=== PATIENT | female | born 1975 | race Caucasian/White ===

== ENCOUNTER 2019-08-28 13:59 | Outpatient (CLI) | payer OTHER, SELFPAY ==
--- NOTE | ~2019-08-28 | MM_ITS ---
EXAMINATION: MM screening hugh BI w hemal HISTORY: Screening mammogram TECHNIQUE: Bilateral rotated lateral CC views. Craniocaudal and mediolateral oblique 3-D tomosynthesi s images were obtained and synthetic 2-D images were generated. CAD analysis was submitted and interp reted. COMPARISON: 08/25/2018, 08/12/2017 bilateral digital screening mammogram examinations 01/21/2017, 07/20/2016 diagnostic left digital mammogram 07/13/2016, 07/07/2015 bilateral digital screening mammogram examinations BREAST PARENCHYMAL COMPOSITION: The breasts are extremely dense, which lowers the sensitivity of mamm ography. FINDINGS: Occasional benign calcifications. There is no evidence of suspicious mass, calcification, o r architectural distortion to suggest malignancy in either breast. There has been no suspicious inter [place] change. IMPRESSION: 1. No mammographic evidence of malignancy. 2. Recommend routine screening mammography in one year. BI-RADS Category 2: Benign finding(s). Reviewed, dictated and finalized at location A. ECT MANAGEMENT DIRECTOR
== END 2019-08-28 14:00 | disposition home or self-care (01) ==
PROVIDERS: PCP Emergency Medicine; Visit Provider Obstetrics & Gynecology
DX: Z12.31 Encounter for screening mammogram for malignant neoplasm of breast (principal)
CPT/HCPCS: 77063; 77067

== ENCOUNTER 2020-12-16 08:48 | Outpatient (CLI) | payer OTHER, SELFPAY ==
--- NOTE | ~2020-12-16 | MM_ITS ---
EXAMINATION: MM screening hugh BI w hemal HISTORY: Screening TECHNIQUE: Craniocaudal and mediolateral oblique 3-D tomosynthesis images were obtained and synthetic 2-D images were generated. CAD analysis was submitted and interpreted. COMPARISON: Comparison to multiple prior studies sequentially, with oldest reviewed study dated 07/01. BREAST PARENCHYMAL COMPOSITION: The breasts are extremely dense, which lowers the sensitivity of mamm ography. FINDINGS: There are benign breast calcifications unchanged. There is no evidence of suspicious mass, calcification, or architectural distortion to suggest malignancy in either breast. There has been no suspicious interval change. IMPRESSION: 1. No mammographic evidence of malignancy. 2. Recommend routine screening mammography in one year. BI-RADS Category 2: Benign finding(s). Reviewed, dictated and finalized at location A.
== END 2020-12-16 08:49 | disposition home or self-care (01) ==
PROVIDERS: PCP Emergency Medicine; Visit Provider Obstetrics & Gynecology
DX: Z12.31 Encounter for screening mammogram for malignant neoplasm of breast (principal)
CPT/HCPCS: 77063; 77067

== ENCOUNTER 2022-01-19 09:16 | Outpatient (CLI) | payer OTHER, SELFPAY ==
--- NOTE | ~2022-01-19 | MM_ITS ---
EXAMINATION: MM screening hugh BI w hemal HISTORY: Screening mammogram TECHNIQUE: Craniocaudal and mediolateral oblique 3-D tomosynthesis images were obtained and synthetic 2-D images were generated. CAD analysis was submitted and interpreted. COMPARISON: 12/16/2020, 08/20/2019, 08/25/2018 bilateral screening mammogram examinations BREAST PARENCHYMAL COMPOSITION: The breasts are extremely dense, which lowers the sensitivity of mamm ography. FINDINGS: Occasional benign calcifications are noted bilaterally. There is no evidence of suspicious mass, calcification, or architectural distortion to suggest malignancy in either breast. There has be en no suspicious interval change. IMPRESSION: 1. No mammographic evidence of malignancy. 2. Recommend routine screening mammography in one year. BI-RADS Category 2: Benign finding(s). Reviewed, dictated and finalized at location A.
== END 2022-01-19 09:17 | disposition home or self-care (01) ==
PROVIDERS: PCP Emergency Medicine; Visit Provider Obstetrics & Gynecology
DX: Z12.31 Encounter for screening mammogram for malignant neoplasm of breast (principal)
CPT/HCPCS: 77063; 77067

== ENCOUNTER 2023-09-09 09:52 | Outpatient (CLI) | payer OTHER, SELFPAY ==
--- NOTE | ~2023-09-09 | MM_ITS ---
EXAMINATION: MM screening hugh BI w hemal HISTORY: Screening mammogram TECHNIQUE: Craniocaudal and mediolateral oblique 3-D tomosynthesis images were obtained and synthetic 2-D images were generated. CAD analysis was submitted and interpreted. COMPARISON: 01/19/2022, 12/16/2020, 08/28/2019 bilateral screening mammogram examinations BREAST PARENCHYMAL COMPOSITION: The breasts are extremely dense, which lowers the sensitivity of mamm ography. FINDINGS: Bilateral mammographic asymmetries and possible masses are suggested. Bilateral diagnostic mammogram and bilateral breast ultrasound examination are recommended. Multiple left breast calcifications. IMPRESSION: 1. Bilateral mammographic asymmetries and possible masses 2. Bilateral diagnostic mammography and breast ultrasound examination are recommended BI-RADS Category 0: Incomplete: Needs additional imaging evaluation. Reviewed, dictated and finalized at location A. NOSTIC SALES SPECIALIST IMPRESSION: 1. Bilateral mammographic asymmetries and possible masses 2. Bilateral diagnostic mammography and breast ultrasound examination are recom mended BI-RADS Category 0: Incomplete: Needs additional imaging evaluation.
== END 2023-09-09 09:53 | disposition home or self-care (01) ==
LOC: ANHIMG 09:54
PROVIDERS: PCP Emergency Medicine; Visit Provider Obstetrics & Gynecology
DX: Z12.31 Encounter for screening mammogram for malignant neoplasm of breast (principal); R92.8 Other abnormal and inconclusive findings on diagnostic imaging of breast
CPT/HCPCS: 77063; 77067

== ENCOUNTER 2023-09-27 12:31 | Outpatient (CLI) | payer OTHER, SELFPAY ==
--- NOTE | ~2023-09-27 | MMUS_ITS ---
EXAMINATION: US breast BI complete, MM diagnostic hugh BI w hemal HISTORY: Follow-up bilateral breast asymmetries and possible masses. TECHNIQUE: Additional 3-D tomosynthesis images of the breasts were performed and synthetic 2-D images were generated. CAD analysis was submitted and interpreted. High resolution bilateral complete breas t ultrasound was performed. COMPARISON: Comparison to multiple prior studies sequentially, with oldest reviewed study dated 08/12. BREAST PARENCHYMAL COMPOSITION: Dense: The breasts are extremely dense, which lowers the sensitivity of mammography. FINDINGS: MAMMOGRAPHIC FINDINGS: There is a developing cluster of calcifications in the periareolar location of the left breast which are indeterminate. No discrete mass is identified. No architectural distortion. ULTRASOUND: Complete bilateral US of all 4 quadrants of the breasts and retroareolar region was reviewed. Right breast:There are multiple cysts of the right breast. At 3:00 near the nipple is an oval partial ly cystic hypoechoic mass with internal vascularity and echogenic hilum measuring 7 mm, likely benign lymph node. At 7:00 near the nipple there is an oval hypoechoic 5 mm mass with central calcification . At 7:00 near the nipple there is an oval hypoechoic mass measuring 9 mm with heterogeneous internal echotexture, parallel orientation, no significant posterior features and no internal vascularity. Left breast: Multiple cysts of the left breast. At 4:00, 1 cm from the nipple, there is an oval paral lel oriented hypoechoic 7 mm mass with internal vascularity and no significant posterior features, li bhupendra benign. At 6:00 near the nipple there is an oval circumscribed parallel oriented hypoechoic mass measuring 8 mm without posterior features or internal vascularity. At 9:00 near the nipple there is a small lymph node. At 11:00, 3 cm from the nipple there is an oval hypoechoic mass with parallel yokasta entation, no posterior features and minimal internal vascularity. This mass measures 1.3 x 1.1 x 0.6 cm. IMPRESSION: 1. Multiple bilateral breast masses which are likely benign due to their multiplicity and sonographic appearance. Developing clustered indeterminate left breast calcifications. 2. Further evaluation with MRI of the breasts with contrast recommended. BI-RADS Category 0: Incomplete: Needs additional imaging evaluation. Reviewed, dictated and finalized at location A. MANAGER IMPRESSION: 1. Multiple bilateral breast masses which are likely benign due to their multip licity and sonographic appearance. Developing clustered indeterminate left crystal st calcifications. 2. Further evaluation with MRI of the breasts with contrast recommended. BI-RADS Category 0: Incomplete: Needs additional imaging evaluation.
== END 2023-09-27 12:32 | disposition home or self-care (01) ==
PROVIDERS: PCP Emergency Medicine; Visit Provider Obstetrics & Gynecology
DX: R92.8 Other abnormal and inconclusive findings on diagnostic imaging of breast (principal)
CPT/HCPCS: 76641; 77062; 77066; G0279

== ENCOUNTER 2023-10-17 10:32 | Outpatient (CLI) | payer OTHER, SELFPAY ==
--- NOTE | ~2023-10-17 | MR_ITS ---
MR breast BI wo/w con 10/17/2023 11:49 CDT INDICATION: Multiple bilateral breast masses seen on recent examination. MRI recommended. TECHNIQUE: MRI of the breasts perform using standard protocol pre-and post IV contrast with the follo wing sequences: Axial T2 STIR, axial T1, axial vibrant T1 with fat suppression precontrast and multip hasic postcontrast. 12 cc MultiHance administered intravenously. COMPARISON: Comparison to multiple prior studies sequentially, with oldest reviewed study dated 04/2024. FINDINGS: There are no abnormalities on the precontrast sequences. There is marked background parench ymal enhancement. There are multiple nonenhancing cysts of the right breast. No enhancing lesions fol lowing contrast administration. No areas of enhancement meeting threshold criteria on CAD analysis. No evidence of signal abnormalities in the axillary or internal mammary node distributions. LEFT BREAST: No signal abnormalities on precontrast sequences. There is minimal, mild, moderate, mar ked background parenchymal enhancement. There are multiple nonenhancing cysts of the left breast. No enhancing lesions following contrast administration. No areas of enhancement meeting threshold crite jenny on CAD analysis. No evidence of signal abnormalities in the axillary or internal mammary node d istributions.] IMPRESSION: 1: Limited study due to marked background enhancement. No suspicious enhancing discrete masses are id entified. Due to the position of the calcifications in the left breast there are not amenable to ster eotactic biopsy. Recommend excisional biopsy using radiographic guidance.. BI-RADS CATEGORY 4-SUSPICIOUS ABNORMALITY Reviewed, dictated and finalized at location A. IMPRESSION: 1: Limited study due to marked background enhancement. No suspicious enhancing discrete masses are identified. Due to the position of the calcifications in th e left breast there are not amenable to stereotactic biopsy. Recommend excision al biopsy using radiographic guidance.. BI-RADS CATEGORY 4-SUSPICIOUS ABNORMALITY
== END 2023-10-17 10:33 | disposition home or self-care (01) ==
LOC: ANHIMG 10:33
PROVIDERS: PCP Emergency Medicine; Visit Provider Obstetrics & Gynecology
DX: N63.15 Unspecified lump in the right breast, overlapping quadrants (principal); R92.8 Other abnormal and inconclusive findings on diagnostic imaging of breast
CPT/HCPCS: 77049; A9577; C8908

== ENCOUNTER 2023-11-16 00:24 | Day surgery (SDC) | payer OTHER, SELFPAY ==
[2023-11-10 11:54] VITALS: BMI 18.1
--- NOTE | 2023-11-10 11:59 | PC.NURSE ---
Report to the Outpatient Waiting Room, entrance under the green pavilion located off [facility], at time 1200 on date 11/16/23. Planned Procedure Time: 1400. Time changes happen often and if your time is changed the preop area will call you the afternoon before. - You and your visitor will be asked to self-screen and do not enter if you have any COVID symptoms. - A mask is optional within the hospital at this time. Patients may have clear liquids (water, carbonated beverages, clear teas, apple juice) until 3 hours prior to surgery with a maximum of 20 ounces. - No food from midnight until time of surgery Take the following medications with a SIP of water the morning of surgery: NONE DO NOT STOP ANY OF YOUR OTHER PRESCRIPTION MEDICATIONS PRIOR TO SURGERY ?EXCEPT THE FOLLOWING Medications to discontinue per physician: VITAMINS Date to take last dose: 11/12/23 Please no make-up, nail belizean, hairspray, perfume, deodorant, or body powder the day of surgery. No jewelry (including any body piercings) or valuables the day of surgery, leave them at home. Please take a shower or bath the night before, or the morning of, surgery with an antibacterial soap. Wear comfortable, loose fitting clothing. - Jewelry must be removed prior to entering the operating room. Rings and piercings that are not removed may be cut off. - The hospital will not accept responsibility for valuables. - Please leave all valuables, including medications, at home the day of surgery. If you are going home after surgery, a licensed courier delivery driver must drive you home. - NO public transportation without another adult if you receive anesthesia. - We recommend that an adult stay with you for 24 hours following discharge. - We also recommend that you do not drive, make important decision, drink alcoholic beverages, or take any drugs that were not prescribed by your health care provider for at least 24 hours after your discharge time. Follow any additional instructions given to you from your surgeon. If you or anyone in your household have experienced Covid symptoms in the past week, please notify your surgeon or the nurse liaison at the phone number below for possible testing. Telephone instructions given to PAUL PAYNE and asked if any additional questions and then verbalized understanding. Patient advised to call surgeon office or pre surgery nurse liaison [phone] if any additional questions.
[2023-11-16] VITALS (9 sets, daily range): BP systolic 108–133; BP diastolic 50–79; PULSE 55–64; RESP 16–18; TEMP 36.1–37.1; O2SAT 100
--- NOTE | ~2023-11-16 | MM_ITS ---
MM_FAXITRON_MG 11/16/2023 14:33 Indication: Breast calcifications. Procedure: Surgical specimen is submitted for review Comparison: Mammogram dated 09/27/2023 Findings: Surgical specimen contains multiple pleomorphic calcifications. Please refer to procedural report for details. Impression: 1: Surgical specimen contains multiple pleomorphic calcifications. Reviewed, dictated and finalized at location B. Impression: 1: Surgical specimen contains multiple pleomorphic calcifications.
[2023-11-16] MEDS: LACTATED RINGERS 1,000 ML 30 ML IV CONT (11:01)
[2023-11-16] MEDS: ACETAMINOPHEN 500 MG TABLET 1000 MG PO (11:13)
--- NOTE | 2023-11-16 11:29 | P.PNAN_ITS ---
Anes - Initial Pre Proc Eval Procedure: Operation Date: 11/16/23 12:00 Proposed Procedures p Excisional Biopsy Left Breast Lesion with Ultrasound and Faxatron Guidance - Tere Lema MD Date/Time: 11/16/23 11:29 Surgeon: Tere Lema MD Pre Op Diagnosis: microcalcification left breast Patient Data Age: 48 Gender: F Height: 1.75 m Weight: 55.9 kg Last Vital Signs Temp 98.8 F 11/16/23 10:39 Pulse 57 L 11/16/23 10:39 Resp 16 11/16/23 10:39 BP 133/57 L 11/16/23 10:39 Pulse Ox 100 11/16/23 10:39 O2 Del Method Room Air 11/16/23 10:39 Allergies Allergy/AdvReac Type Severity Reaction Status Date / Time adhesive tape Allergy Mild Rash Verified 11/16/23 10:44 Home Medications Medication Instructions Recorded Confirmed Type cholecalciferol (vitamin D3) 50 50 mcg PO DAILY 10/27/23 11/16/23 History mcg (2,000 unit) capsule Patient hx anesthesia problems: none Family hx anesthesia problems: none Results Review: All pre-operative results and documents have been reviewed as part of the pre- operative evaluation. [facility] Family History Family History Mother Depression Hypertension Sibling Breast cancer Depression Grandparent Breast cancer Diabetes mellitus Hypertension Cerebrovascular accident Thyroid disorder Grandparent Diabetes mellitus Social History Social History Smoking status: Never smoker Second hand tobacco smoke exposure: No Alcohol intake: never Alcohol use details: rarely Substance use: never Substance use type: does not use Do You Feel Safe in your Home?: Yes Lack of Transportation: No Lack of Food: Never True Current Housing: I Have Housing Concerned About Future Housing: No Difficulty Paying Gas/Electric Bills: No Difficulty Paying for Meds: No Currently Unemployed: No Education: Master's Degree or Higher Difficulty w/ Childcare or Family Care: No Living arrangements: with family Spiritual care concerns: No Anes - Eval Final PreProcedure Day of Procedure 11/16/23 11:29 Patient weight: normal Heart: regular rate and rhythm Lungs: clear to auscultation Airway: Mallampati scale Neurological: alert and oriented Last oral intake: >/= 8 hours ASA classification: I Emergent: no Anesthetic plan: proceed Anesthesia type and monitoring: general LMA and standard monitoring Results Review: All pre-operative results and documents have been reviewed as part of the pre- operative evaluation. Informed Consent: The patient's anesthetic plan and its attendant risks and benefits were discussed with the patient/family/POA. Questions were solicited and answers provided to the satisfaction of the patient/family/POA.
--- NOTE | 2023-11-16 11:43 | WPDHPUPDATE1 ---
History and Physical Update Update Date/Time: 11/16/23 11:43 History and Physical has been reviewed, including an updated exam of the patient. There are NO changes in the patient's condition. Risks, benefits, and alternatives have been discussed and questions answered. Patient agrees to proceed with procedure.
[2023-11-16] MEDS: ceFAZolin 2 GM/D5W 50 ML 2 GM/50 ML BAG IVPB (11:56)
[2023-11-16] MEDS: BUPIVACAINE/EPINEPHRINE 0.5% 50 ML VIAL 30 ML INFILTRATE (12:24)
[2023-11-16] MEDS: LIDO 1%/EPINEPHRINE 1:100,000 20 ML VIAL 30 ML INFILTRATE (12:24)
--- NOTE | 2023-11-16 12:56 | P.OP_ITS ---
Procedure Note - Detailed Date of Procedure 11/16/23 Pre-op Diagnosis retroareolar microcalcification of left breast Post-op Diagnosis Same Procedure Performed 1. Excisional biopsy of left breast retroareolar calcifications 2. Adjacent tissue transfer 2.5cm x 2.5cm Surgeon Tere Lema MD Director Corporate Sales Vielka Moon PA-C Anesthesia General Description of Procedure Patient was identified in the preoperative holding area brought to the operating room suite. She was laid supine on the operating table sequential compression devices were applied. General anesthesia was induced without difficulty. Based on her diagnostic mammogram images decision was made to start with a superior periareolar incision. I also used the ultrasound probe to visualize some of the course calcifications noted in the superior retroareolar region of the left breast to confirm our future incision and area of excision biopsy. This was dissected down to the subcutaneous tissue and may proceed to core out a small sample in the retroareolar area all the way down to the pectoralis muscle which was approximately 2.5cm in depth. Once the specimen was excised, it was oriented with surgical paint according to the leather sorter instructions. The specimen was placed in the Faxitron to ensure all the microcalcifications were contained within the specimen and this was verified. The biopsy specimen was sent to pathology as a fresh specimen. The cavity was irrigated with saline and hemostasis was assured. Since the specimen was retroareolar, decision was made for adjacent tissue transfer to close the central cavity to prevent nipple retraction and central deformity. I proceeded to perform a dual plane dissection in the upper and lateral aspect of the breast to mobilize the tissue medially into the retroareolar region. Once this was performed, several intraparenchymal 2 0 Vicryl sutures were placed to close the central cavity and support the nipple. The deep dermal layer was then closed with 3-0 Vicryl followed by 4-0 Monocryl in a subcuticular fashion for the skin. Dermabond was applied followed by a sterile dressing and a surgical bra. Patient was awoken from anesthesia taken to the recovery area in stable condition. All needles, instruments, and sponge counts were correct as reported by the operating room staff. Patient tolerated the procedure well with no immediate complications. Vielka Moon PA-C was present and assisted with patient positioning and retraction throughout the case. Estimated Blood Loss 1 Pathology Yes Complications No immediate complications Condition Stable Disposition PACU [facility] Billing Surgery - Charge Forward: Surgery Billing (CPT 15138, [id number] - [id number])
== END 2023-11-16 15:04 | disposition home or self-care (01) ==
PROVIDERS: PCP Emergency Medicine; Visit Provider Surgery
PROC: (CPT 19301; principal; 2023-11-16 12:00)
DX: D05.12 Intraductal carcinoma in situ of left breast (principal)
CPT/HCPCS: 19301; 14000; 76098; 88307; 88342; A9270; J0690; J1100; J2250; J2371; J2405; J2704; J3010; J7120

== ENCOUNTER 2024-01-03 08:05 | Outpatient (CLI) | payer OTHER, SELFPAY ==
--- NOTE | 2024-01-03 08:45 | ECG_ITS ---
[facility] [address] Test Date: 2024-01-03 Pat Name: Deja Linda Department: Room: Gender: F Cash Reconciliation Specialist: : 1975 Requested By: Jimi Acosta Order Number: [id number] Maribel MD: Jyoti Hollis M.D. Measurements Intervals [place] Rate: 64 P: 74 NC: 144 QRS: 83 QRSD: 89 T: 72 QT: 389 QTc: 404 Interpretive Statements SINUS RHYTHM POSSIBLE LEFT ATRIAL ENLARGEMENT [-0.1mV P WAVE IN V1/V2] INCOMPLETE RIGHT BUNDLE BRANCH BLOCK No previous ECG available for comparison Electronically Signed On 01-03-2024 14:19:53 CDT by Jyoti Hollis M.D.
[2024-01-03 09:04] LABS: Hematocrit 35.4 % (37.0-47.0); Hemoglobin 11.3 g/dL (12.0-15.0)
== END 2024-01-03 08:06 | disposition home or self-care (01) ==
LOC: ANHSURGERY 08:39
PROVIDERS: Anesthesiology; PCP Emergency Medicine; Visit Provider Surgery
DX: Z01.810 Encounter for preprocedural cardiovascular examination (principal); Z01.812 Encounter for preprocedural laboratory examination; D05.12 Intraductal carcinoma in situ of left breast; I45.10 Unspecified right bundle-branch block
CPT/HCPCS: 36415; 85014; 85018; 86850; 86900; 86901; 93005

== ENCOUNTER 2024-01-11 01:08 | Day surgery (SDC) | payer OTHER, SELFPAY ==
[2024-01-02 09:57] VITALS: BMI 17.7
--- NOTE | 2024-01-02 09:58 | PC.NURSE ---
Report to the Outpatient Waiting Room, entrance under the green pavilion located off [facility], at time _0700_ on date _[id number]_. Planned Procedure Time: _0900_. Time changes happen often and if your time is changed the preop area will call you the afternoon before. - You and your visitor will be asked to self-screen and do not enter if you have any COVID symptoms. - A mask is optional within the hospital at this time. Patients may have clear liquids (water, carbonated beverages, clear teas, apple juice) until 3 hours prior to surgery with a maximum of 20 ounces. - No food from midnight until time of surgery Take the following medications with a SIP of water the morning of surgery: __None DO NOT STOP ANY OF YOUR OTHER PRESCRIPTION MEDICATIONS PRIOR TO SURGERY ?EXCEPT THE FOLLOWING Medications to discontinue per physician None___ Date to take last dose Please no make-up, nail german, hairspray, perfume, deodorant, or body powder the day of surgery. No jewelry (including any body piercings) or valuables the day of surgery, leave them at home. Please take a shower or bath the night before, or the morning of, surgery with an antibacterial soap. Wear comfortable, loose fitting clothing. - Jewelry must be removed prior to entering the operating room. Rings and piercings that are not removed may be cut off. - The hospital will not accept responsibility for valuables. - Please leave all valuables, including medications, at home the day of surgery. If you are going home after surgery, a licensed tilt tray driver must drive you home. - NO public transportation without another adult if you receive anesthesia. - We recommend that an adult stay with you for 24 hours following discharge. - We also recommend that you do not drive, make important decision, drink alcoholic beverages, or take any drugs that were not prescribed by your health care provider for at least 24 hours after your discharge time. Follow any additional instructions given to you from your surgeon. If you or anyone in your household have experienced Covid symptoms in the past week, please notify your surgeon or the nurse liaison at the phone number below for possible testing. Telephone instructions given to __Deja__and asked if any additional questions and then verbalized understanding. Patient advised to call surgeon office or pre surgery nurse liaison [phone] if any additional questions.
[2024-01-11] VITALS (11 sets, daily range): BP systolic 94–126; BP diastolic 54–71; PULSE 61–89; RESP 12–18; TEMP 36.4–37.1; O2SAT 97–100; BMI 17.6
--- NOTE | ~2024-01-11 | NM_ITS ---
EXAMINATION: NM sentinel node inject only DATE: 01/11/2024 09:06 INDICATION: Left breast cancer TECHNIQUE: 1.049 mCi Tc-99m filtered sulfur colloid was injected in 4 aliquots along the superior, in ferior, medial and lateral margins of the articular. No images were obtained. IMPRESSION: 1. Successful left breast sentinel lymph node radiopharmaceutical injection. Reviewed, dictated and finalized at location A.
--- NOTE | 2024-01-11 07:19 | WPDHPUPDATE1 ---
History and Physical Update Update Date/Time: 01/11/24 07:19 - plan for left nipple sparing mastectomy, left sentinel lymph node biopsy, right nipple sparing prophylactic mastectomy with staged reconstruction with tissue expanders History and Physical has been reviewed, including an updated exam of the patient. There are NO changes in the patient's condition. Risks, benefits, and alternatives have been discussed and questions answered. Patient agrees to proceed with procedure.
--- NOTE | 2024-01-11 07:56 | WPDHPUPDATE1 ---
History and Physical Update Update Date/Time: 01/11/24 07:56 Patient seen and examined in pre-operative holding area. No interval change in medical history or symptoms. Patient remembers previous discussion of benefits and alternatives to procedure. Continues to desire to proceed with bilateral breast reconstruction with tissue expanders and acellular dermal matrix placement at time of mastectomy. I reviewed the risks including but not limited to bleeding ,infection, asymmetry, undesireable cosmetic appearance, partial/total skin/nipple loss, device failure, capsular contracture, no change or worsening of symptoms, change in sensation. I discussed the possible use of assistants and their level of participation in the case. Patient stated understanding and signed the consent form wishing to proceed
--- NOTE | 2024-01-11 07:57 | W.PM.PROC2 ---
Procedure Note - Detailed Date of Procedure 01/11/24 Pre-op Diagnosis left breast CA Post-op Diagnosis Other (acquired absence bilateral breasts) Procedure Performed b/l breast recon with TE and adm Surgeon Thelma Paez MD Thread Grinder Tool kumar brambila pa-c Anesthesia General Description of Procedure Patient was seen in the preoperative holding area where the breasts were marked and consent form was signed. Patient was taken back to the operating room and placed on the table in a supine position. Time-out was performed with Anesthesia, surgeons, and staff agreeing on patient's name, site, and surgery to be performed. SCDs were placed on the lower extremities and inflated. Antibiotics were given IV. After general anesthesia was administered the breasts were prepped and draped in the usual sterile fashion. Care was then given to Dr. Flores who proceeded with performing the left sentinel lymph node biopsy with the assistance of Kumar brambila p.a.-C. After this was completed we proceeded with performing the left nipple sparing mastectomy. I designed the inframammary fold incision and proceeded with assisting Dr. Lema in the mastectomy. After the left mastectomy was performed I proceeded with suturing in a piece of large contoured perforated AlloDerm along the inframammary fold and anterior axillary line with 2 0 Vicryl suture. I irrigated the pocket with antibiotic solution and hemostasis was obtained with Bovie cautery. I proceeded with placing a Natrelle tissue choral director reference number [id number] serial number [id number] after prepping it on the back table and rinsing it in antibiotic irrigation. This choral director was sutured into place with 2 0 Vicryl sutures using the tabs for the medial lateral and superior portion. I placed a 10 BRAULIO drain along the inframammary fold and an on Q catheter was placed along the superior aspect of the cavity. The AlloDerm was covering the tissue choral director entirely. I irrigated 1 more time with antibiotic irrigation. I closed skin with 3-0 Vicryl for dermis and 4-0 Monocryl for subcuticular closure. Next we changed our gloves and used fresh instruments and proceeded with the right nipple sparing mastectomy. Using my inframammary fold incision I proceeded with assisting Dr. Lema in the right mastectomy. After this was completed I irrigated the pocket with antibiotic irrigation. Hemostasis with Bovie cautery. I proceeded with selling and another piece large contoured perforated AlloDerm along the inframammary fold and anterior axillary line with 2-0 Vicryl suture. I proceeded with placing prepared Natrelle tissue choral director reference number [id number] serial number [id number] and sutured it into the right breast pocket using the tabs with 2-0 Vicryl suture. The position and symmetry to both breasts was reasonable. The skin flaps appeared viable as well as the nipples with good cap refill. I irrigated the pocket 1 more time with antibiotic irrigation and then closed with 3-0 Vicryl for dermis and 4-0 Monocryl for subcuticular closure after placing my 10 BRAULIO drain along the inframammary fold and on Q catheter along the superior aspect of the cavity. It was also noted the AlloDerm completely covering the right tissue choral director. The drains were hooked to bulb suction. Due to the patients small breast size to begin with no expansion was performed intraop. A dressing of Mastisol, Steri-Strips, 4x4s, Tegaderm, ABDs and a breast binder was then applied. 5 cc of 1% lidocaine with epinephrine and 0.5% Marcaine plain were used for initial bolus dose on each on Q catheter. This was hooked up to the on Q pump. The drains were hooked to bulb suction. The patient was awakened from anesthesia and transferred to the recovery room in stable condition. Complications: None Estimated blood loss: 15 cc for my portion of the procedure. Disposition: Patient tolerated the procedure well and will be staying for observation overnight.
[2024-01-11] MEDS: LIDOCAINE/PRILOCAINE CREAM 2.5-2.5% TUBE 1 EACH TOPICAL (08:09)
[2024-01-11] MEDS: LACTATED RINGERS 1,000 ML 30 ML IV CONT ×2 (08:18→13:50)
--- NOTE | 2024-01-11 08:30 | SUR.PREOP ---
0830- Patient taken via wheelchair with IV saline locked to NUC medicine. 0850- Patient returned to pre-op room 10 via wheelchair with NUC medicine staff.
[2024-01-11] MEDS: ACETAMINOPHEN 500 MG TABLET 1000 MG PO (08:52)
--- NOTE | 2024-01-11 08:56 | WPDANESEPPF ---
Anes - Initial Pre Proc Eval Procedure: Operation Date: 01/11/24 09:00 Proposed Procedures p Bilateral Nipple Sparing Mastectomy, Left [place] Lymph Node Biopsy with Lymphoseek Injection, Possible Methylene Blue, - Tere Lema MD s Bilateral Immediate Breast Reconstruction with Tissue Family Practice Nurse Practitioner Placement and Alloderm - Thelma Paez MD Date/Time: 01/11/24 08:56 Surgeon: Tere Lema MD Pre Op Diagnosis: left breast CA Patient Data Age: 48 Gender: F Height: 1.75 m Weight: 54.05 kg Last Vital Signs Temp 98.1 F 01/11/24 07:22 Pulse 61 01/11/24 07:22 Resp 14 01/11/24 07:22 BP 112/71 01/11/24 07:22 Pulse Ox 100 01/11/24 07:22 O2 Del Method Room Air 01/11/24 07:22 Allergies Allergy/AdvReac Type Severity Reaction Status Date / Time adhesive tape Allergy Mild Rash Verified 01/11/24 08:48 Home Medications Medication Instructions Recorded Confirmed Type cephalexin 500 mg capsule 500 mg PO Q8H #21 caps 01/11/24 Rx hydrocodone 5 mg-acetaminophen 325 1 tablet PO Q6H PRN pain #16 tabs 01/11/24 Rx mg tablet Patient hx anesthesia problems: none Family hx anesthesia problems: none Results Review: All pre-operative results and documents have been reviewed as part of the pre-operative evaluation. [facility] Family History Family History Mother Depression Hypertension Sibling Breast cancer Depression Grandparent Breast cancer Diabetes mellitus Hypertension Cerebrovascular accident Thyroid disorder Grandparent Diabetes mellitus Social History Social History Smoking status: Never smoker Second hand tobacco smoke exposure: No Alcohol intake: never Alcohol use details: rarely Substance use: never Substance use type: does not use Do You Feel Safe in your Home?: Yes Lack of Transportation: No Lack of Food: Never True Current Housing: I Have Housing Concerned About Future Housing: No Difficulty Paying Gas/Electric Bills: No Difficulty Paying for Meds: No Currently Unemployed: No Education: Master's Degree or Higher Difficulty w/ Childcare or Family Care: No Living arrangements: with family Spiritual care concerns: No Anes - Eval Final PreProcedure Day of Procedure 01/11/24 08:56 Patient weight: normal Heart: regular rate and rhythm Lungs: clear to auscultation Airway: Mallampati scale class II Neurological: alert and oriented Last oral intake: >/= 8 hours ASA classification: III Emergent: no Anesthetic plan: proceed Anesthesia type and monitoring: general ETT and standard monitoring Results Review: All pre-operative results and documents have been reviewed as part of the pre-operative evaluation. Informed Consent: The patient's anesthetic plan and its attendant risks and benefits were discussed with the patient/family/POA. Questions were solicited and answers provided to the satisfaction of the patient/family/POA.
[2024-01-11] MEDS: NACL 0.9% IRRIG POUR BOTTLE 1,000 ML, GENTAMICIN SULFATE INJ 160 MG, ceFAZolin 2 GM IRRIGATION (09:51)
--- NOTE | 2024-01-11 12:12 | SUR.OPER ---
right breast incision time 12:12
--- NOTE | 2024-01-11 13:15 | W.PM.PROC2 ---
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 Left nipple sparing mastectomy 2. Left sentinel lymph node biopsy with lymphoseek 3. Right nipple sparing prophylactic mastectomy Surgeon Tere Lema MD Conveyor Technician Vielka Moon PA-C Anesthesia General Description of Procedure Patient was identified in the preoperative holding area brought to the operating room suite. She was laid supine in the operating table and sequential compression devices were applied. General endotracheal anesthesia was induced without difficulty. Bilateral chest and left axillary regions were prepped and draped in a sterile fashion. Attention was turned to the left side. The gamma probe was used to find the area of highest radioactivity in the axilla and a small axillary incision was made overlying this area. Dissection was carried out of the subcutaneous tissue until the clavipectoral fascia was encountered and opened. The gamma probe was used to find a node that was high in radio activity and this was gently grasped and excised using the LigaSure device. The count for this sentinel lymph node #1 was approximately 610. A second sentinel lymph node was identified with high radioactivity and excised en bloc with 1st node, and second count was 248. Both nodes were passed off the table and sent to pathology as a fresh specimen. The 1st sentinel lymph node was inked blue for easy identification by pathology. The gamma probe was again used to scan the axilla looking for any lymph nodes with a radioactive count of at least 10% of sentinel lymph node 1, and no other nodes were identified. Palpation and inspection of the axilla, and I identified a superficial axillary node that appeared more prominent than the others, and this was also excised and sent to Pathology. The axillary incision was then irrigated hemostasis was assured. The clavipectoral fascia was closed with a running 2 0 Vicryl. The deep dermal layer was then closed with interrupted 3-0 Vicryl followed by 4-0 Monocryl for the subcuticular layer. Dermabond was applied. Attention was then turned to the left breast. An inframammary incision was made as previously marked by Plastic surgery and dissection was carried down through the subcutaneous tissue into the breast tissue. Dissection was then taking place in the thin areolar tissue between the subcutaneous in the breast tissue superiorly to the inferior border of the clavicle, medial to the lateral part of the sternal border, laterally to the latissimus dorsi, and inferior to the inframammary fold down to the muscle. The breast tissue along with the pectoralis fascia was then carefully dissected off the pectoralis muscle posteriorly. Once the entire breast was excised, it was also oriented with a short stitch superior and a long stitch lateral as well as the subareolar region with a short and long stitch. The mastectomy specimen was sent to pathology as a permanent specimen. The cavity was irrigated with saline hemostasis was assured. Attention was then turned to the right prophylactic side. An inframammary incision was again made as previously marked by Plastic surgery and dissection was carried down through the subcutaneous tissue into the breast tissue. Dissection was then taking place in the thin areolar tissue between the subcutaneous in the breast tissue superiorly to the inferior border of the clavicle, medial to the lateral part of the sternal border, laterally to the latissimus dorsi, and inferior to the inframammary fold down to the muscle. The breast tissue along with the pectoralis fascia was then carefully dissected off the pectoralis muscle posteriorly. Once the entire breast was excised, it was oriented with a short stitch superior and a long stitch lateral as well as the subareolar region was marked with a mickey
[2024-01-11] MEDS: ceFAZolin SODIUM 1 GM VIAL IV PUSH (13:34)
--- NOTE | 2024-01-11 14:36 | SUR.PHASEI ---
Simple mask removed at 3645.
[2024-01-11] MEDS: BUPivacaine 0.5% ON-Q PUMP 335 ML INTRADERM (14:40)
[2024-01-11] MEDS: fentaNYL CITRATE INJ (*CRX) 100 MCG/2 ML VIAL 25 MCG IV PUSH ×3 (14:42→15:06)
[2024-01-11] MEDS: LACTATED RINGERS 1,000 ML 100 ML IV CONT (16:00)
[2024-01-11] MEDS: HYDROcodone/acetaminophen (*CRX) 5-325 MG TABLET 1 TAB PO ×2 (16:47→22:27)
[2024-01-11] MEDS: CEPHALEXIN 500 MG CAPSULE PO ×2 (16:47→23:28)
[2024-01-11] MEDS: DOCUSATE SODIUM 100 MG CAPSULE PO (16:47)
[2024-01-11] MEDS: ACETAMINOPHEN 325 MG TABLET 650 MG PO ×2 (17:48→23:28)
[2024-01-12] MEDS: HYDROcodone/acetaminophen (*CRX) 5-325 MG TABLET 1 TAB PO (06:30)
[2024-01-12 06:34] VITALS: BP 106/65; PULSE 65; RESP 16; TEMP 37; O2SAT 99
[2024-01-12 07:45] VITALS: BP 109/62; PULSE 73; RESP 16; TEMP 37.7; O2SAT 100
[2024-01-12] MEDS: CEPHALEXIN 500 MG CAPSULE PO (07:49)
[2024-01-12] MEDS: ACETAMINOPHEN 325 MG TABLET 650 MG PO (07:49)
--- NOTE | 2024-01-12 08:59 | WPDANESPN ---
Anes - Prog Note Post-Op Date/Time: 01/12/24 08:59 Cardiovascular status: normal Respiratory status: normal Airway patency: baseline Mental status: baseline Post-Op hydration status: normal Vital Signs: Last Vital Signs Temp 37.7 C H 01/12/24 07:45 Pulse 73 01/12/24 07:45 Resp 16 01/12/24 07:45 BP 109/62 01/12/24 07:45 Pulse Ox 100 01/12/24 07:45 O2 Del Method Room Air 01/12/24 06:34 O2 Flow Rate 8 01/11/24 14:20 Pain Score (VAS): 0 I/O: Intake & Output 01/11/24 01/12/24 01/12/24 23:59 07:59 15:59 Output Total 185 55 Balance -185 -55 Post-procedural complaints: none Patient Feedback: Patient satisfied with anesthetic care.
[2024-01-12] MEDS: DOCUSATE SODIUM 100 MG CAPSULE PO (09:26)
[2024-01-12] MEDS: HYDROcodone/acetaminophen (*CRX) 10-325 MG TABLET 1 TAB PO (10:41)
--- NOTE | 2024-01-12 12:08 | PM.PNGS ---
Progress Note: A&P Assessment and Plan (1) Ductal carcinoma in situ of left breast: Code(s): D05.12 - Intraductal carcinoma in situ of left breast Status: Acute Plan 48 y/o female h/o LEFT breast DCIS and significant family history of breast cancer admitted for observation overnight s/p bilateral nipple sparing mastectomy with left axillary sentinel lymph node biopsy (Dr. Lema) and immediate prepec tissue transit mixer driver breast reconstruction (Dr. Paez), recovering well POD#1, tolerating PO diet, ambulating and voiding without issue. Reviewed impression and healing expectations, discussed signs/symptoms of concern. reviewed dressing/activity/garment instructions. Reviewed discharge medications and drain care. Pt and voiced understanding and agreement. Plan 1) dc home 2) PO cephalexin Q8hr 3) norco q6 prn pain 4) drain care 5) plastics follow up 1 week with drain log 6) breast surg follow up 2 weeks Subjective Subjective Date/Time Seen: 01/12/24 12:08 Interval history: pt seen at bedside, no concerns overnight. pain managed with PO norco, On-Q in place. denies fever/chills, bleeding/redness, SOB, chest pain, BLE pain, N/V/D, ACHARYA/dizziness. tolerating PO diet, ambulating and voiding without issue. feels ready to go home today. Exam Narrative: sitting comfortably in bed, conversational. Const: General: cooperative, healthy appearing and comfortable Orientation/consciousness: oriented to person, oriented to place and oriented to time HENMT: Head: normal to inspection Eyes: Other: anicteric Neck: Neck: no JVD Chest: Other: surgical bra and dressings c/d/i, removed. gauze and tegaderm dressings c/d/i to bilateral IMF incisions. bilateral breast tissue absent. mastectomy skin flaps and nipple wwp bilaterally, nipple cap refil <3 sec without sensation to light touch. no erythema/ecchymosis, minimal mastectomy skin flap edema. moderate tenderness, TE in place bilaterally with symmetric medial and superior border, no seroma/hematoma/fluctuance. drains to bulb suction bilaterally with moderate dark serosanguineous drainage, drains sites clean and dry. on-q catheters in place. drain output 100cc L and 100cc R overnight. left axillary incision thin flat healing well. Resp: Effort & Inspection: normal respiratory effort Extrem: General: no pedal edema Objective Data Vital Signs Vital Signs: Vital Signs - 24 hr 01/11/24 13:50 01/11/24 14:05 01/11/24 14:20 Temperature 36.4 C L Pulse Rate 89 79 88 Respiratory Rate 13 12 18 Blood Pressure 115/68 123/71 120/68 Pulse Oximetry 100 100 100 Oxygen Delivery Simple Face Mask Simple Face Mask Simple Face Mask Oxygen Flow Rate 8 8 8 01/11/24 14:35 01/11/24 14:50 01/11/24 15:05 Temperature 36.6 C 36.6 C Pulse Rate 73 67 83 Respiratory Rate 12 15 12 Blood Pressure 121/69 120/68 126/68 Pulse Oximetry 100 97 99 Oxygen Delivery Room Air Room Air Room Air Oxygen Flow Rate 01/11/24 15:15 01/11/24 15:30 01/11/24 15:30 Temperature 37.1 C 37.0 C Pulse Rate 74 81 Respiratory Rate 12 14 Blood Pressure 118/68 110/68 Pulse Oximetry 99 100 Oxygen Delivery Room Air Room Air Oxygen Flow Rate 01/11/24 23:30 01/11/24 19:30 01/11/24 19:30 Temperature 36.9 C Pulse Rate 64 72 72 Respiratory Rate 14 14 14 Blood Pressure 114/64 Pulse Oximetry 100 98 100 Oxygen Delivery Room Air Room Air Oxygen Flow Rate 01/11/24 23:30 01/12/24 06:34 01/12/24 06:34 Temperature 36.5 C 37.0 C Pulse Rate 64 65 65 Respiratory Rate 16 16 16 Blood Pressure 94/54 L 106/65 Pulse Oximetry 100 99 99 Oxygen Delivery Room Air Oxygen Flow Rate 01/12/24 07:45 01/12/24 07:50 Temperature 37.7 C H Pulse Rate 73 Respiratory Rate 16 Blood Pressure 109/62 Pulse Oximetry 100 Oxygen Delivery Room Air Oxygen Flow Rate Intake/Output Intake/Output: Intake & Output 01/09/24 01/10/24 01/11/24 01/12/24 23:59
== END 2024-01-12 12:54 | disposition home or self-care (01) ==
LOC: ANHSURGERY 08:40 → ANHOB2 15:23
PROVIDERS: Plastic Surgery; PCP Emergency Medicine; Visit Provider Surgery
PROC: (CPT 19303; principal; 2024-01-11 09:00)
PROC: (CPT 19357; 2024-01-11 09:00)
DX: D05.12 Intraductal carcinoma in situ of left breast (principal); N60.21 Fibroadenosis of right breast
CPT/HCPCS: 19303; 38525; 19357; 15777 ×2; 36415; 38792; 85014; 85018; 86850; 86900; 86901; 88305; 88307; 93005; 99199; A9270; A9520; J0665; J0690; J1100; J1170; J1580; J2250; J2405; J2704; J3010; J7030; J7120; Q4116; Q9968

== ENCOUNTER 2024-08-09 05:54 | Day surgery (SDC) | payer OTHER, SELFPAY ==
[2024-07-20 10:55] VITALS: BMI 18.5
--- NOTE | 2024-08-08 11:31 | WPDANESEPPF ---
Anes - Initial Pre Proc Eval Procedure: Operation Date: 08/09/24 07:30 Proposed Procedures p Exchange Bilateral Breast Tissue Dictaphone Transcriber to Silicone Implants - Thelma Paez MD Date/Time: 08/08/24 11:31 Surgeon: Thelma Paez MD Pre Op Diagnosis: Acquired Absence of Both Breast and Nipple Patient Data Age: 49 Gender: F Height: 1.75 m Weight: 57 kg Allergies Allergy/AdvReac Type Severity Reaction Status Date / Time adhesive tape Allergy Mild Rash Verified 08/09/24 06:38 cephalexin Allergy Rash Verified 08/09/24 06:38 Home Medications ?Medication ?Instructions ?Recorded ?Confirmed ?Type No Home Medications 01/30/24 08/09/24 History Patient hx anesthesia problems: none Family hx anesthesia problems: none Results Review: All pre-operative results and documents have been reviewed as part of the pre-operative evaluation. [facility] Past Medical History Medical History (Updated 08/09/24 @ 06:55 by Jimi Henderson DO) History of breast cancer s/p b/l mastectomy last dose of radiation 05/2024 Family History Family History Mother Depression Hypertension Sibling Breast cancer Depression Grandparent Breast cancer Diabetes mellitus Hypertension Cerebrovascular accident Thyroid disorder Grandparent Diabetes mellitus Social History Social History Smoking status: Never smoker Second hand tobacco smoke exposure: No Alcohol intake: never Alcohol use details: rarely Substance use: never Substance use type: does not use Do You Feel Safe in your Home?: Yes Lack of Transportation: No Lack of Food: Never True Current Housing: I Have Housing Concerned About Future Housing: No Difficulty Paying Gas/Electric Bills: No Difficulty Paying for Meds: No Currently Unemployed: No Education: Master's Degree or Higher Difficulty w/ Childcare or Family Care: No Living arrangements: with family Spiritual care concerns: No Anes - Eval Final PreProcedure Day of Procedure 08/08/24 11:31 Patient weight: normal Heart: regular rate and rhythm Lungs: clear to auscultation Airway: Mallampati scale class 1 Neurological: alert and oriented Last oral intake: >/= 8 hours ASA classification: III Emergent: no Anesthetic plan: proceed Anesthesia type and monitoring: general LMA and standard monitoring Results Review: All pre-operative results and documents have been reviewed as part of the pre-operative evaluation. Informed Consent: The patient's anesthetic plan and its attendant risks and benefits were discussed with the patient/family/POA. Questions were solicited and answers provided to the satisfaction of the patient/family/POA.
[2024-08-09] VITALS (8 sets, daily range): BP systolic 111–128; BP diastolic 64–84; PULSE 57–90; RESP 12–18; TEMP 36.6–36.8; O2SAT 99–100
[2024-08-09] MEDS: LACTATED RINGERS 1,000 ML 30 ML IV CONT (06:34)
--- NOTE | 2024-08-09 06:47 | WPDHPUPDATE1 ---
History and Physical Update Update Date/Time: 08/09/24 06:47 Patient seen and examined in pre-operative holding area. No interval change in medical history or symptoms. Patient remembers previous discussion of benefits and alternatives to procedure. Continues to desire to proceed with bilateral tissue neurosurgery spine physician exchange for silicone implant and capsulotomy. I reviewed the risks including but not limited to bleeding ,infection, asymmetry, undesireable cosmetic appearance, partial/total skin/nipple loss, no change or worsening of symptoms, change in sensation, device failure, capsular contracture. I discussed the possible use of assistants and their level of participation in the case. Patient stated understanding and signed the consent form wishing to proceed
--- NOTE | 2024-08-09 06:49 | W.PM.PROC2 ---
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 Patient was taken back to the operating room and placed on the table in the supine position. Time-out was performed with Anesthesia, surgeon, and staff agreeing on patient's name, site, and surgery to be performed. SCDs were placed on the lower extremities and inflated. Antibiotics were given IV. After general anesthesia was administered the breasts were prepped and draped in usual sterile fashion. I took my attention to the right breast were I proceeded with making an elliptical incision around her previous mastectomy scar through skin and dermis with a 15 blade scalpel. Bovie cautery was used to dissect through subcutaneous tissue down to the breast capsule. I elevated superiorly along the capsule. I entered the capsule with Bovie cautery. I removed the intact right breast tissue rhinestone setter. The capsule was examined with lighted retractors and I proceeded with extensive capsulotomy of the right breast with radial and vertical scoring along medial and superior aspect. Provisional sizers were placed and decision was made to go with a Natrelle 255 cc moderate projection implant. The Sizer was removed. The pocket irrigated with antibiotic irrigation and hemostasis with Bovie cautery. A portion of inferior capsule was also resected noting it was thicker and in anticipation of capsulorrhaphy to elevate the right breast a capsule to make it more symmetric with the left breast was done with Bovie cautery. This was done prior to the hemostasis and antibiotic irrigation. The skin was then prepped with Betadine and new towels were placed around the incision. Gloves were changed and instruments rinsed in antibiotic irrigation. I proceeded with taking a Natrelle SCM -255 implant serial [id number] directly from the package after rinsing in antibiotic irrigation and placed it in its appropriate orientation in the right breast pocket. The capsule was closed with 3-0 Vicryl suture in the new superior chest wall attachment. dermis was closed with 3-0 Vicryl and 4-0 Monocryl was used for subcuticular closure. Next I took my attention to the left breast where I proceeded with making an elliptical incision around her previous mastectomy scar through skin and dermis with a 15 blade scalpel. Bovie cautery was used to dissect through subcutaneous tissue down the breast capsule and extending this along the capsule superiorly. The capsule was incised with Bovie cautery. I removed the intact left breast tissue rhinestone setter. I proceeded with extensive capsule chris me with radial and vertical scoring and a superior medial and lateral aspects of the left breast pocket Bovie cautery. The Sizer was placed noting improved transition from [place] chest wall to implant and release of capsular contractures as well as improved symmetry to the right breast. The temporary Sizer was removed. Hemostasis was obtained with Bovie cautery. I irrigated the pocket with antibiotic irrigation. I proceeded with prepping the skin with Betadine placing a fresh towels around the incision changing gloves and rinsing and instruments and antibiotic irrigation once again. I proceeded with taking a Natrelle SCM -255 implant serial number [id number] directly from the package after rinsing it in antibiotic irrigation and placed in its appropriate orientation the left breast pocket. Capsule and dermis was closed with 3-0 Vicryl suture 4-0 Monocryl for subcuticular closure. The skin flaps were viable the nipples appeared viable and there appeared to be good symmetry between the breasts. 10 cc of 1% lidocaine with epinephrine and 0.5% Marcaine plain were injected around the incisions in lateral chest for each breast. A dressing of Mastisol, Steri-Strips, 4 x 4, Tegaderm, ABD and a breast binder was then applied. The patient was awakened from anesthesia and transferred to the recovery room in stable condition. Complications: None estimated blood loss: 6 cc disposition: Patient tolerated the procedure well and will be going home later today Kumar Brambila PA-C was essential for positioning, retracrtion, closure and dressing placement [facility] [place] Billing Surgery - Charge Forward: Surgery Billing ([id number] same for kumar adding modifier )
[2024-08-09] MEDS: CLINDAMYCIN 900 MG/NS 50 ML 900 MG/50 ML PIGGYBACK 50 MG IVPB (07:22)
[2024-08-09] MEDS: NACL 0.9% IRRIG POUR BOTTLE 900 ML, GENTAMICIN SULFATE INJ 160 MG, CLINDAMYCIN PHOS INJ... IRRIGATION (08:15)
[2024-08-09] MEDS: LIDO 1%/EPINEPHRINE 1:100,000 10 ML VIAL 30 ML INFILTRATE (08:25)
[2024-08-09] MEDS: BUPivacaine HCL 0.5% PF 30 ML VIAL INFILTRATE (08:25)
[2024-08-09] MEDS: fentaNYL CITRATE INJ (*CRX) 100 MCG/2 ML VIAL 25 MCG IV PUSH ×3 (08:59→09:19)
[2024-08-09] MEDS: oxyCODONE HCL (*CRX) 5 MG TAB IR PO (09:49)
--- NOTE | 2024-08-09 10:13 | WPDANESPN ---
Anes - Prog Note Post-Op Date/Time: 08/09/24 10:13 Cardiovascular status: normal Respiratory status: normal Airway patency: baseline Mental status: baseline Post-Op hydration status: normal Vital Signs: Last Vital Signs Temp 36.6 C 08/09/24 08:34 Pulse 57 L 08/09/24 09:51 Resp 15 08/09/24 09:51 BP 123/77 08/09/24 09:51 Pulse Ox 100 08/09/24 09:51 O2 Del Method Room Air 08/09/24 09:51 O2 Flow Rate 2 08/09/24 09:04 Pain Score (VAS): 2 I/O: Intake & Output 08/08/24 08/09/24 08/09/24 23:59 07:59 15:59 Intake Total 1000 Balance 1000 Post-procedural complaints: none Patient Feedback: Patient satisfied with anesthetic care. Other Findings: Patient vital signs back to baseline. Patient denies nausea and vomiting. Patient's pain under control. Patient OK for discharge.
== END 2024-08-09 10:24 ==
PROVIDERS: PCP Nurse Practitioner; Visit Provider Plastic Surgery
PROC: (CPT 19342; principal; 2024-08-09 07:30)
DX: Z45.811 Encounter for adjustment or removal of right breast implant (principal); Z45.812 Encounter for adjustment or removal of left breast implant
CPT/HCPCS: 19342

== ENCOUNTER 2024-08-09 07:00 | Outpatient (NON) | payer OTHER, SELFPAY | END 2024-08-09 07:01 | disposition home or self-care (01) | LOC: ANHLAB 14:28 | PROVIDERS: PCP Nurse Practitioner; Visit Provider Plastic Surgery | DX: Z90.13 Acquired absence of bilateral breasts and nipples (principal) | CPT/HCPCS: 88300; 88304; 88305 ==

== ENCOUNTER 2024-08-31 11:23 | Outpatient (CLI) | payer OTHER, SELFPAY ==
--- OUTSIDE RECORDS SUMMARY | 2024-08-31 11:26 | XMS_ITS | Clinical Summary ---
[facility] Address [address] [address] Care Team Providers Care Concrete Products Machine Operator Name Role Phone Christiano Carey MD Primary Care Provider [phone] Allergies Active Allergy Reactions Criticality Noted Date Comments Adhesive Itching Low 11/29/2023 Cephalexin Rash,Swelling Low 02/10/2024 Face swelling Medications Mometasone (ELOCON) 0.1 % Solution Apply to affected area 2 times daily. 120 mL 3 03/08/2024 Active tamoxifen (NOLVADEX) 20 mg tablet Take 1 Tablet (20 mg) by mouth daily. 90 Tablet 4 05/18/2024 Active Active Problems No known active problems Encounters Date Type Department Care Team Description 08/23/2024 External Device Data STL ABSTRACTION Provider, Abstract from Last 3 Months Family History Medical History Relation Name Comments No Known Problems Brother No Known Problems Father Breast Cancer Maternal Grandmother Hyperlipidemia Mother No Known Problems Sister 1 No Known Problems Sister 2 Breast Cancer Sister 3 Breast Cancer Sister 4 No Known Problems Sister 5 Relation Name Status Comments Brother Alive Father Alive Maternal Grandmother Alive Mother Alive Sister 1 Alive Sister 2 Alive Sister 3 Alive Sister 4 Alive Sister 5 Alive Social History Tobacco Use Types Packs/Day Years Used Date Smoking Tobacco: Never Tobacco Cessation:Counseling Given: Not Answered Alcohol Use Standard Drinks/Week Comments Yes 0 (1 standard drink = 0.6 oz pur e alcohol) socially Comments Unknown Sex and Gender Information Value Date Recorded Sex Assigned at Not on file Legal Sex Female 10:34 AM CDT Gender Identity Not on file Sexual Orientation Not on file Last Filed Vital Signs Vital Sign Reading Time Taken Comments Blood Pressure 103/72 05/18/2024 9:39 AM CDT Pulse 78 05/18/2024 9:39 AM CDT Temperature 36.9 ??C (98.4 ??F) 05/18/2024 9:39 AM CD T Respiratory Rate 15 05/18/2024 9:39 AM CDT Oxygen Saturation 98% 05/18/2024 9:39 AM CDT Inhaled Oxygen Concentration - - Weight 57.6 kg (127 lb) 05/18/2024 9:39 AM CDT Height 175.3 cm (5' 9 ) 11/29/2023 1:35 PM CDT Body Mass Index 18.75 11/29/2023 1:35 PM CDT Plan of Treatment Upcoming Encounters Date Type Department Care Team (Late st Contact Info) Description 08/31/2024 12:00 PM COMBATANT SWIMMER Office Visit [facility] Oncology and Hematology [facility] [address] [facility] [address] [place] [address] Patrick Thomas MD [address] [facility] [employer] [address] [place] [address] Health Maintenance Due Date Last Done Comments DTAP/TDAP/TD VACCINES (1 - Tdap) 1994 HEPATITIS B VACCINES (1 of 3 - 19+ 3-dose series) 01/30 CERVICAL CANCER SCREENING 2005 BREAST CANCER SCREENING 2015 COLORECTAL SCREENING 02/22/2020 Colorectal Cancer Screening 02/22/2020 FIT-DNA Q 3 years 02/22/2020 FIT/FOBT Q 1 year 02/22/2020 Flex Sig/CT Colonography Q 5 years 02/22/2020 Preventative Visit- Commercial 08/01/2024 INFLUENZA VACCINE Completed 05/07/2024 Insurance [employer] CHOICE POS Care Teams Concrete Products Machine Operator Relationship Specialty Start Date End Date Christiano Carey MD [facility] [place] [id number] PCP - General Family Practice 11/29/23
--- OUTSIDE RECORDS SUMMARY | 2024-08-31 11:26 | XMS_ITS | Clinical Summary ---
Author Organization [facility] Address [address] [place] [address]. [place], [place] [address] [place] [address] Care Team Providers Care Ship Washer Name Role Phone Angie Sandhu NP Primary Care Provider [phone] Allergies Active Allergy Reactions Criticality Noted Date Comments Cephalexin Other (see comment),Rash,Swelling Low 01/13/2024 Face swelling Tape Itching Low 11/29/2023 Medications tamoxifen (NOLVADEX) 20 MG tablet Take 1 tablet by mouth daily. 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 History of bilateral mastectomy 06/01/2024 Anemia, unspecified type 06/01/2024 Encounters Date Type Department Care Team Description 06/01/2024 3:20 PM CDT Office Visit [facility] [address] [place] [address] Angie Sandhu, DENA New Patient 06/01/2024 Travel from Last 3 Months Family History Medical History Relation Comments Hyperlipidemia Father Hypertension Mother Breast Cancer Sister breast cancer Sister Relation Status Comments Father Mother Sister Social History Tobacco Use Types Packs/Day Years Used Date Smoking Tobacco: Never Passive Smoke Exposure: Never Smokeless Tobacco: Never Alcohol Use Standard Drinks/Week Comments Not Currently 0 (1 standard drink = 0.6 oz pur e alcohol) Comments No Sex and Gender Information Value Date Recorded Sex Assigned at Not on file Legal Sex Female 3:59 PM CDT Gender Identity Not on file Sexual Orientation Not on file Last Filed Vital Signs Vital Sign Reading Time Taken Comments Blood Pressure 138/85 06/01/2024 3:36 PM CDT Pulse 71 06/01/2024 3:36 PM CDT Temperature 36.4 ??C (97.6 ??F) 06/01/2024 3:36 PM CD T Respiratory Rate 18 06/01/2024 3:36 PM CDT Oxygen Saturation 100% 06/01/2024 3:36 PM CDT Inhaled Oxygen Concentration - - Weight 57.9 kg (127 lb 9.6 oz) 06/01/2024 3:36 P M CDT Height 175.3 cm (5' 9 ) 06/01/2024 3:36 PM CDT Body Mass Index 18.84 06/01/2024 3:36 PM CDT Plan of Treatment Upcoming Encounters Date Type Department Care Team (Late st Contact Info) Description 06/03/2025 8:00 AM VETERANS' COUNSELOR Office Visit [facility] - [place] [address] [place] [address] Angie Sandhu, RECOVERY ENGINEER [address] [place] [address] Health Maintenance Due Date Last Done Comments Cervical Cancer Screening Pap Smear (Age 30 to 64) Every 3 Years 1975 Colorectal Cancer Screening Colonoscopy (10 Years) 1975 PHQ-2 (Physician [place]) 1987 Hepatitis C 1993 Hepatitis B Vaccines (1 of 3 - 19+ 3-dose series) 1994 Cervical Cancer Screening Pap with HPV Testing (Age 30 to 64) Every 5 Years 2005 Cervical Cancer Screening with HPV 2005 Mammogram Screening 2015 PHQ-2 (Physician [place]) 08/01/2024 Annual Physical 06/01/2025 06/01/2024 DTaP, Tdap and Td Vaccines (2 - Td or Tdap) 08/27/2032 08/27/2022 COVID-19 Vaccine Completed 05/08/2024, , 06/22/2022, Additional history exists Influenza Adult Completed 05/08/2024, 05/02, 05/11/2022, Additional history exists Meningococcal B Vaccine Aged Out No l onger eligible based on patient's age to complete this topic Meningococcal Vaccine Aged Out No zuleyma jennifer eligible based on patient's age to complete this topic Pneumococcal Vaccine: Pediatrics (0 to 5 Years) and At-Risk Patients (6 to 64 Years) Aged Out No longer eligible based on patient's age to complete this topic RSV Immunizations Under 20 Months Aged Out No longer eligible based on patient's age to complete this topic Insurance [facility] Care Teams Ship Washer Relationship Specialty Start Date End Date Angie Sandhu RECOVERY ENGINEER [address] [place] [address] PCP - General NURSE PRACTITIONER 06/01/24
[2024-08-31 11:41] LABS: Basophils Percent Auto 0.6 % (0.2-1.2); Eosinophils Percent Auto 0.7 % (0-4.4); Hematocrit 36.7 % (37.0-47.0); Hemoglobin 12.1 g/dL (12.0-15.0); Immature Granulocyte Absolute 0.01 K/mm3 (0.00-0.031); Immature Granulocyte Percent A 0.2 % (0-0.5); Lymphocytes Absolute Auto 0.99 K/mm3 (0.9-3.2); Lymphocytes Percent Auto 18.3 % (18.3-44.2); Mean Corpuscular Hemoglobin 30.6 pg (26-34); Mean Corpuscular Volume 92.7 fl (80-100); Mean Platelet Volume 10.3 fl (7.4-10.4); Monocytes Absolute Auto 0.5 K/mm3 (0.1-0.6); Monocytes Percent Auto 9.6 % (2.6-8.5); Neutrophils Absolute Auto 3.8 K/mm3 (1.3-6.7); Neutrophils Percent Auto 70.6 % (45.5-73.1); Platelet Count Result 257 k/mm3 (150-375); Red Blood Count 3.96 M/mm3 (4.2-5.4); Red Cell Distribution Width 13.2 % (11.5-14.5); White Blood Count 5.4 K/mm3 (4.5-10.0)
[2024-08-31 11:44] LABS: Blood Urea Nitrogen 14 mg/dL (8-26); Carbon Dioxide 25 mmol/L (22-30); Chloride 104 mmol/L (98-109); Estimated Glomerular Filt Rate > 60; Glucose 100 mg/dL (70-105); Ionized Calcium (POC) 1.23 mmol/L (1.11-1.31); Potassium 4.2 mmol/L (3.5-4.9); Sodium 139 mmol/L (138-146)
[2024-08-31 12:40] LABS: Alanine Aminotransferase 16 U/L (6-35); Albumin Level 4.4 g/dL (3.5-5.1); Alkaline Phosphatase 59 U/L (38-126); Anion Gap 8 mmol/L (4-12); Aspartate Amino Transferase 25 U/L (14-36); Bilirubin,Total 0.6 mg/dL (0.2-1.3); Blood Urea Nitrogen 15 mg/dL (7-17); Calcium 9.6 mg/dL (8.4-10.2); Carbon Dioxide 24 mmol/L (22-30); Chloride 104 mmol/L (98-107); Estimated Glomerular Filt Rate > 60; Glucose 100 mg/dL (65-110); Potassium 4.3 mmol/L (3.4-5.0); Sodium 136 mmol/L (137-145)
== END 2024-08-31 11:24 | disposition home or self-care (01) ==
LOC: ANHLAB 11:23
PROVIDERS: Visit Provider Internal Medicine Hematology & Oncology
DX: D05.12 Intraductal carcinoma in situ of left breast (principal)
CPT/HCPCS: 36415; 80047; 80053; 85025

== ENCOUNTER 2024-11-05 08:00 | Outpatient (RCR) | payer OTHER, SELFPAY ==
[2024-10-01 08:05] VITALS: BP_SYST 140
--- NOTE | 2024-10-01 09:02 | OPREHPOC ---
Outpatient Therapy Plan of Care This is a Multidisciplinary Plan of Care that may contain components documented by all disciplines (PT, OT, and ST.) PT Problem 1 PT Problem #1 Knowledge Deficit PT Goal 1 Goal / Goal Update *indep with HEP Target Visit 6 PT Problem 2 PT Problem #2 Impaired Flexibility PT Goal 1 Goal / Goal Update increase flexibility of L shoulder to improve ability to reach overhead and self & home activities: in standing, active ROM: 1* flexion 140' 2* abduction 140' 3* ER in supine, with hands behind head, same distance to bed as R elbow Target Visit 6 PT Problem 3 PT Problem #3 Pain PT Goal 1 Goal / Goal Update * with stretching of L shoulder, pain 2/10 at worst Target Visit 6
--- NOTE | 2024-10-01 09:02 | PTOPEVAL1 ---
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 Her treatment has been completed in August 2024. She is R hand dominant, and active lifestyle. She has been doing some stretching to her L shoulder, but reports it is still tight and some tenderness. She does not have any swelling over her breast, trunk or shoulder and arm. With the evaluation: decreased L shoulder ROM with tightness over anterior shoulder and tenderness with spasms. L elbow, wrist and hand ranges are WNL and with good strength. Skilled PT services are indicated for modalities to decrease pain and tightness, therapeutic exercises to increase flexibility of L shoulder, with education for HEP. Plan of Care Interventions Hot Pack/Cold Pack,Manual Therapy,Neuro Re- education,Patient/Caregiver Education,Therapeutic Activities,Therapeutic Exercise,Other Other Interventions taping PT Services Indicated Yes Treatment Frequency and 1x/wk for 6 visits Duration These treatments will address the objective and functional deficits as defined above. The patient will be advanced safely and appropriately in order for the patient to progress towards his/her prior level of function. Additional exercises will be introduced and as well as a comprehensive home exercise program upon discharge, if needed, ?to ensure carryover of functional gains achieved in the clinic. This treatment plan has been reviewed and agreement upon by the patient.
--- NOTE | 2024-11-05 08:56 | PTOPDC ---
Assessment and note entered by Celena Robles, PT Assessment Status Discharge ICD-10 Condition Codes (PT) Pain in left shoulder M25.512 Other ICD-10 Condition Codes ( Z90.13 bilateral mastectomy PT) Onset May 2024 Subjective Information shoulder is not as tight, is looser; not back to normal, but better; doing all the exercises at home; is doing everything, but aware that shoulder is tight and stiff; Reported Pain Level Pain Score Self Report Additional Pain Score Comments L shoulder tightness; pain range of the past week 0-5/10- pain if push it too far. does not stop her from doing anything with her L arm. Assessment PT Clinical Summary Deja has received 6 PT sessions. She continues to report tight and ache in L shoulder with stretching to 5/10 and at rest, no pain. Strength has improve-- she has returned to performing all of her usual home and work tasks. Education completed for monitor for any s/s of lymphedema, HEP and progression of activity. L shoulder ROM: active/passive: flexion 140'/ 160' abduction 120'/ 140'; IR reach behind back, fingers to scapula and ER- reach to back of head. With supine ER stretch, with hands behind head, has tightness with elbow not flat to the bed, like her R side. The goals were partially achieved. Discharge PT services. She is to continue with her HEP with progression of activity as able. Plan of Care PT Services Indicated No
== END 2024-11-05 12:57 | disposition home or self-care (01) ==
LOC: ANHPT 08:00
PROVIDERS: PCP Physician Assistant Surgical; Visit Provider Physician Assistant Surgical
DX: Z90.13 Acquired absence of bilateral breasts and nipples (principal)
CPT/HCPCS: 97110; 97140; 97161; 97530

== ENCOUNTER 2025-01-11 08:15 | Outpatient (CLI) | payer OTHER, SELFPAY ==
--- OUTSIDE RECORDS SUMMARY | 2025-01-11 08:18 | XMS_ITS | Clinical Summary ---
Author Organization [facility] Address [address] [place] [address] Care Team Providers Care Clay Artist Name Role Phone Christiano Carey MD Primary Care Provider [phone] Allergies Active Allergy Reactions Criticality Noted Date [...] Encounters Date Type Department Care Team Description 01/01/2025 External Device Data STL ABSTRACTION Provider, Abstract 12/20/2024 External Device Data STL ABSTRACTION Provider, Abstract 12/19/2024 External Device Data STL ABSTRACTION Provider, Abstract 12/18/2024 External Device Data STL ABSTRACTION Provider, Abstract 11/13/2024 External Device Data STL ABSTRACTION Provider, Abstract 10/17/2024 External Device Data STL ABSTRACTION Provider, Abstract [...] Sign Reading Time Taken Comments Blood Pressure 112/67 08/31/2024 12:00 PM NEUROPSYCHIATRIC AIDE Pulse 61 08/31/2024 12:00 PM NEUROPSYCHIATRIC AIDE Temperature 36.1 C (97 F) 08/31/2024 12:00 PM NEUROPSYCHIATRIC AIDE Respiratory Rate 17 08/31/2024 12:00 PM NEUROPSYCHIATRIC AIDE Oxygen Saturation 98% 08/31/2024 12:00 PM NEUROPSYCHIATRIC AIDE Inhaled Oxygen Concentration - - Weight 56.3 kg (124 lb 3.2 oz) 08/31/2024 12:00 PM NEUROPSYCHIATRIC AIDE Height 175.3 cm (5' 9) 11/29/2023 1:35 PM CDT Body Mass Index 18.34 11/29/2023 1:35 PM CDT Plan of Treatment Upcoming Encounters Date Type Department Care Team (Late st Contact Info) Description 01/11/2025 8:45 AM CDT Office Visit [facility] Oncology and Hematology - [place] [address] [facility] [address] [place] [address] Patrick Thomas MD [address] [place] [address] Health Maintenance Due Date Last Done Comments DTAP/TDAP/TD VACCINES (1 - Tdap) 1994 HEPATITIS B VACCINES (1 of 3 - 19+ 3-dose series) 01/30 HPV/Cotest (21-29) 02/22/1996 CERVICAL CANCER SCREENING 2005 HPV/Cotest (30-65) 2005 PAP SMEAR 2005 COLORECTAL SCREENING 02/22/2020 Colorectal Cancer Screening 02/22/2020 FIT-DNA Q 3 years 02/22/2020 FIT/FOBT Q 1 year 02/22/2020 Flex Sig/CT Colonography Q 5 years 02/22/2020 INFLUENZA VACCINE Completed 05/07/2024 Insurance [employer] MANAGED CHOICE Care Teams Clay Artist Relationship Specialty Start Date End Date Christiano Carey MD [address] [place] [address] [place] [address] PCP - General Family Practice 11/29/23
[2025-01-11 08:28] LABS: Basophils Absolute Auto 0.1 K/mm3 (0.0-0.1); Basophils Percent Auto 1.8 % (0.2-1.2); Eosinophils Absolute Auto 0.1 K/mm3 (0-0.3); Eosinophils Percent Auto 2.1 % (0-4.4); Hematocrit 38.7 % (37.0-47.0); Hemoglobin 12.8 g/dL (12.0-15.0); Immature Granulocyte Absolute 0.01 K/mm3 (0.00-0.031); Immature Granulocyte Percent A 0.3 % (0-0.5); Lymphocytes Absolute Auto 0.85 K/mm3 (0.9-3.2); Lymphocytes Percent Auto 25.4 % (18.3-44.2); Mean Corpuscular HGB Conc 33.1 g/dl (32-36); Mean Corpuscular Volume 90.8 fl (80-100); Mean Platelet Volume 9.9 fl (7.4-10.4); Monocytes Absolute Auto 0.4 K/mm3 (0.1-0.6); Neutrophils Percent Auto 59.4 % (45.5-73.1); Platelet Count Result 279 k/mm3 (150-375); Red Blood Count 4.26 M/mm3 (4.2-5.4); Red Cell Distribution Width 12.7 % (11.5-14.5); White Blood Count 3.4 K/mm3 (4.5-10.0)
[2025-01-11 08:32] LABS: Blood Urea Nitrogen 17 mg/dL (8-26); Carbon Dioxide 25 mmol/L (22-30); Chloride 103 mmol/L (98-109); Estimated Glomerular Filt Rate 59; Glucose 70 mg/dL (70-105); Potassium 4.1 mmol/L (3.5-4.9); Sodium 140 mmol/L (138-146)
[2025-01-11 08:58] LABS: Alanine Aminotransferase 20 U/L (6-35); Albumin Level 4.5 g/dL (3.5-5.1); Alkaline Phosphatase 56 U/L (38-126); Anion Gap 8 mmol/L (4-12); Aspartate Amino Transferase 32 U/L (14-36); Bilirubin,Total 0.5 mg/dL (0.2-1.3); Blood Urea Nitrogen 17 mg/dL (7-17); Calcium 9.6 mg/dL (8.4-10.2); Carbon Dioxide 25 mmol/L (22-30); Chloride 106 mmol/L (98-107); Estimated Glomerular Filt Rate > 60; Glucose 72 mg/dL (65-110); Potassium 4.2 mmol/L (3.4-5.0); Sodium 139 mmol/L (137-145); Total Protein 7.8 g/dL (6.3-8.2)
== END 2025-01-11 08:16 | disposition home or self-care (01) ==
PROVIDERS: Visit Provider Internal Medicine Hematology & Oncology
DX: D05.12 Intraductal carcinoma in situ of left breast (principal)
CPT/HCPCS: 36415; 80047; 80053; 85025

== ENCOUNTER 2025-07-19 09:31 | Outpatient (CLI) | payer BC, SELFPAY ==
[2025-07-19 09:45] LABS: Hematocrit 35.7 % (37.0-47.0); Hemoglobin 12.0 g/dL (12.0-15.0); Immature Granulocyte Percent A 0.4 % (0-0.5); Lymphocytes Absolute Auto 0.83 K/mm3 (0.9-3.2); Mean Corpuscular HGB Conc 33.6 g/dl (32-36); Mean Corpuscular Hemoglobin 30.5 pg (26-34); Mean Corpuscular Volume 90.8 fl (80-100); Nucleated Red Blood Cells Absolute Auto 0.000 K/mm3 (0.0-0.012); Nucleated Red Blood Cells Perc 0.0 % (0.0-0.2); Platelet Count Result 274 k/mm3 (150-375); Red Blood Count 3.93 M/mm3 (4.2-5.4); White Blood Count 5.7 K/mm3 (4.5-10.0)
--- OUTSIDE RECORDS SUMMARY | 2025-07-19 09:49 | XMS_ITS | Clinical Summary ---
Author Organization [facility] waite [facility] Address [address] [place] [address] Care Team Providers Care Hi Lift Operator Name Role Phone Unavailable Primary Care Provider Unavailabl e Allergies Active Allergy Reactions Criticality Noted Date [...] Encounters Date Type Department Care Team Description 07/16/2025 External Device Data STL ABSTRACTION Provider, Abstract 05/21/2025 External Device Data STL ABSTRACTION Provider, Abstract [...] Sign Reading Time Taken Comments Blood Pressure 99/61 01/11/2025 8:45 AM CDT Pulse 65 01/11/2025 8:45 AM CDT Temperature 36.3 C (97.4 F) 01/11/2025 8:45 AM CDT Respiratory Rate 14 01/11/2025 8:45 AM CDT Oxygen Saturation 98% 01/11/2025 8:45 AM CDT Inhaled Oxygen Concentration - - Weight 55.5 kg (122 lb 6.4 oz) 01/11/2025 8:45 A M CDT Height 175.3 cm (5' 9) 11/29/2023 1:35 PM CDT Body Mass Index 18.08 11/29/2023 1:35 PM CDT Plan of Treatment Upcoming Encounters Date Type Department Care Team (Late st Contact Info) Description 07/19/2025 10:00 AM IMPROVEMENT ENGINEER Office Visit [facility] Oncology and Hematology [facility] [address] [facility] [address] [place] [address] Patrick Thomas MD [address] [place] [address] Arrived Health Maintenance Due Date Last Done Comments DTAP/TDAP/TD VACCINES (1 - Tdap) 1994 08/27/19 23 HEPATITIS B VACCINES (1 of 3 - 19+ 3-dose series) 1994 HPV/Cotest (21-29) 02/22/1996 CERVICAL CANCER SCREENING 2005 HPV/Cotest (30-65) 2005 PAP SMEAR 2005 COLORECTAL SCREENING 02/22/2020 Colorectal Cancer Screening 02/22/2020 FIT-DNA Q 3 years 02/22/2020 FIT/FOBT Q 1 year 02/22/2020 Flex Sig/CT Colonography Q 5 years 02/22/2020 Preventative Visit- Commercial 08/01/2024 06/03/2025 , 06/01/2024 ZOSTER VACCINE (1 of 2) 2025 INFLUENZA VACCINE (#1) 2025 , 05/08/2024, 05/07/2024 Insurance [employer] MANAGED CHOICE [facility] BLUE ACCESS/TRUE BLUE PPO
--- OUTSIDE RECORDS SUMMARY | 2025-07-19 09:49 | XMS_ITS | Clinical Summary ---
Author Organization [facility] [address] [address] [facility] [address] [place] [address] Care Team Providers Care Typists Supervisor Name Role Phone Angie Sandhu NP Primary Care Provider [phone] Allergies Active Allergy Reactions Criticality Noted Date Comments Adhesive Itching Low 11/29/2023 Cephalexin Rash,Swelling Medium 02/10/2024 Face swelling Medications No known medications Active Problems No known active problems Social History Tobacco Use Types Packs/Day Years Used Date Smoking Tobacco: Never Assessed Comments Unknown Sex and Gender Information Value Date Recorded Sex Assigned at Not on file Legal Sex Female [address] Gender Identity Not on file Sexual Orientation Not on file Last Filed Vital Signs Vital Sign Reading Time Taken Comments Blood Pressure 124/70 02/26/2025 9:19 AM CDT Pulse 73 02/26/2025 9:19 AM CDT Temperature 36.9 C (98.4 F) 02/26/2025 9:19 AM CDT Respiratory Rate 20 02/26/2025 9:19 AM CDT Oxygen Saturation 99% 02/26/2025 9:19 AM CDT Inhaled Oxygen Concentration - - Weight 57.2 kg (126 lb) 02/26/2025 9:19 AM CDT Height - - Body Mass Index - - Plan of Treatment Health Maintenance Due Date Last Done Comments Breast Cancer Screening-Mammogram 1975 Cervical Cancer Screening 1975 Colon Cancer Screening-Colonoscopy 1975 Depression Screening 1975 Hepatitis C Screening 1975 Hepatitis B Screening 1993 Regular Well Visit/Exam 18-64 1993 Zoster Vaccine (1 of 2) 2025 Covid-19 Vaccine ( season) 2025 05/08/2024, 05/27/2023, 06/22/2022, Additional history exists Influenza Vaccine (#1) 2025 4, 05/27/2023, 05/11/2022, Additional history exists DTaP/Tdap/Td Vaccine (2 - Td or Tdap) 08/27/2032 08/27/2022 Pneumococcal vaccine <65 Aged Out No longer eligible based on patient's age to complete this topic Insurance [facility] Care Teams Typists Supervisor Relationship Specialty Start Date End Date Angie Sandhu NP [address] [place] [address] PCP - General Internal Medicine 02/26/25
[2025-07-19 12:44] LABS: Alanine Aminotransferase 15 U/L (6-35); Albumin Level 4.2 g/dL (3.5-5.1); Alkaline Phosphatase 57 U/L (38-126); Anion Gap 8 mmol/L (4-12); Aspartate Amino Transferase 50 U/L (14-36); Bilirubin,Total 0.6 mg/dL (0.2-1.3); Blood Urea Nitrogen 16 mg/dL (7-17); Calcium 9.4 mg/dL (8.4-10.2); Carbon Dioxide 23 mmol/L (22-30); Chloride 106 mmol/L (98-107); Estimated Glomerular Filt Rate > 60; Glucose 96 mg/dL (65-110); Potassium 4.2 mmol/L (3.4-5.0); Sodium 137 mmol/L (137-145); Total Protein 7.7 g/dL (6.3-8.2)
[2025-07-22 16:02] LABS: Potassium 4.2 mmol/L (3.5-4.9); Sodium 138 mmol/L (138-146)
[2025-07-22 16:03] LABS: Blood Urea Nitrogen 15 mg/dL (8-26); Carbon Dioxide 24 mmol/L (22-30); Chloride 104 mmol/L (98-109); Estimated Glomerular Filt Rate > 60; Glucose 99 mg/dL (70-105); Ionized Calcium (POC) 1.23 mmol/L (1.11-1.31)
== END 2025-07-19 09:32 | disposition home or self-care (01) ==
PROVIDERS: Visit Provider Internal Medicine Hematology & Oncology
DX: D05.12 Intraductal carcinoma in situ of left breast (principal)
CPT/HCPCS: 36415; 80047; 80053; 85025